=== PATIENT | female | born 1955 | race Caucasian/White ===

== ENCOUNTER 2017-01-16 09:10 | Day surgery (SDC) | payer BC ==
[~2017-01-16] VITALS: Ht 154.9 cm; Wt 81.5 kg
[2017-01-16 10:15] VITALS: Ht 154.9 cm; Wt 81.5 kg
[2017-01-16] MEDS ORDERED: OMEP40CA6 PO (10:22)
[2017-01-16] MEDS ORDERED: LEVO88TA3 PO (10:22)
[2017-01-16] MEDS ORDERED: ASPI81TA3 PO (10:22)
[2017-01-16] MEDS ORDERED: METF-480 PO (10:22)
[2017-01-16] MEDS ORDERED: PRAV10TA43 PO (10:22)
[2017-01-16] MEDS ORDERED: LISI2.5T59 PO (10:22)
[2017-01-16] MEDS ORDERED: MIDAZOLAM 1 MG/ML 2 ML INJ ONE (10:24)
[2017-01-16] MEDS ORDERED: PROPOFOL 20 ML ONE ×2 (10:24→11:30)
[2017-01-16] MEDS ORDERED: LIDOCAINE 2% (SDV) 5 ML INJ ONE (10:24)
[2017-01-16 11:02] VITALS: BP 130/70; PULSE 98; RESP 15
[2017-01-16 11:55] VITALS: BP 114/76; PULSE 80; RESP 20
--- NOTE | 2017-01-16 14:18 | GILP ---
DATE OF PROCEDURE: 01/16/2017 NAME OF PROCEDURES: 1. Esophagogastroduodenoscopy and biopsy. 2. Colonoscopy and biopsy. SURGEON: Hamida Ortega MD PREOPERATIVE DIAGNOSES: 1. Abdominal pain. 2. Positive occult blood in stool. POSTOPERATIVE DIAGNOSES: 1. Gastritis. 2. Gastric mucosal biopsies were taken for Helicobacter pylori test. 3. Colonoscopy all the way to the cecum. 4. Small transverse colon polyp was removed using the biopsy forceps. 5. Internal hemorrhoids. INDICATION FOR THE PROCEDURE: Ms. Candice Guerin is a 61-year-old female patient who had upper abdominal pain, not responding to therapy. She was also noted to have positive occult blood in stool. The p atient was scheduled for endoscopy and colonoscopy for further evaluation. The procedures and possible complications were well explained to the patient and the family, and con sent was obtained. DESCRIPTION OF PROCEDURE: Under the influence of anesthesia, the gastroscope was carefully introduc ed into the esophagus, and under direct vision, it was advanced to the stomach and through the pylor us into the duodenal bulb and descending duodenum. FINDINGS: ESOPHAGUS: The mucosa was normal. STOMACH: The patient had gastritis. Gastric mucosal biopsies were taken for H. pylori test. DUODENUM: Normal. The colonoscope was carefully introduced in the rectum, and under direct vision, it was advanced all the way to the cecum. FINDINGS: The patient had a small transverse colon polyp, and it was removed using the biopsy force ps. She had internal hemorrhoids. She tolerated the procedures very well, and there was no complication from the procedures. At the e nd of the procedures, she was awake with stable vital signs, and she was discharged home to the care of her family. IMPRESSION: 1. Gastritis with erosions. 2. Gastric mucosal biopsies were taken for Helicobacter pylori test. 3. Colonoscopy all the way to the cecum. 4. Small transverse colon polyp was removed using the biopsy forceps. 5. Internal hemorrhoids. PLAN: 1. Continue omeprazole. 2. Await histopathology reports. 3. Next screening colonoscopy in 10 years. Dictated By: HAMIDA MACIAS/YARA Conf#: [id number] DID#: [id number]
== END 2017-01-16 16:37 | disposition home or self-care (01) ==
LOC: GIL 09:10
PROVIDERS: ATTEND Internal Medicine Gastroenterology
DX: K92.1 Melena (principal); K29.70 Gastritis, unspecified, without bleeding; D12.3 Benign neoplasm of transverse colon; I10 Essential (primary) hypertension; E03.9 Hypothyroidism, unspecified; E11.9 Type 2 diabetes mellitus without complications; E78.5 Hyperlipidemia, unspecified
CPT/HCPCS: 43239; 45380; 82962; 87081; 88305; J2250; Z7610

== ENCOUNTER 2017-11-12 18:56 | Emergency (ER) | END 2017-11-12 23:00 | disposition home or self-care (01) ==

== ENCOUNTER 2018-12-07 19:17 | Emergency (ER) | payer BC ==
[~2018-12-07] VITALS: Ht 154.9 cm; Wt 81.4 kg
[~2018-12-07 19:17] MED LIST: ASPI-903 PO; COLC0.6T6 PO; IBUP-1542 PO; LEVO88TA3 PO; LISI2.5T59 PO; METF-480 PO; OMEP40CA6 PO; PRAV10TA43 PO; PRED20TA PO
[2018-12-07 19:22] VITALS: Ht 154.9 cm; Wt 81.4 kg
[2018-12-07] MEDS ORDERED: SOD CHLORIDE 0.9% 1,000 ML IV STA (22:17)
[2018-12-07] MEDS ORDERED: MECLIZINE 12.5 MG TAB PO ONE (22:30)
[2018-12-08] MEDS ORDERED: MECL12.574 PO (00:55)
--- NOTE | 2018-12-08 00:59 | ERD ---
ER Documentation Chief Complaint Chief Complaint HIGH BLOOD PRESSURE, DIZZINESS HPI Is a 63-year-old female which felt like the room was spinning. Today. Denies fevers chills nausea vomiting. She did complain of mild headache associated with it and some mild left ear pain.. Denies any focal neurologic complaints. Denies any other current issues. ROS All systems reviewed and are negative except as per history of present illness. Medications Home Meds Active Scripts Meclizine Hcl* (Antivert*) 12.5 Mg Tab, 12.5 MG PO Q6H PRN for DIZZINESS, #20 TAB Prov:SHERWIN CAZARES 12/08/18 Prednisone* (Prednisone*) 20 Mg Tab, 60 MG PO DAILY for 3 Days, TAB Prov:JACKLYN PONCE. MEDIA DIRECTOR 11/12/17 Colchicine* (Colcrys*) 0.6 Mg Tablet, 0.6 MG PO as directed, #3 TAB Take 2 tabs immediately, then 1 tab 1 hour later. Prov:JACKLYN PONCE. MEDIA DIRECTOR 11/12/17 Ibuprofen* (Motrin*) 600 Mg Tab, 600 MG PO Q6H PRN for PAIN AND OR ELEVATED TEMP, #30 TAB Prov:JACKLYN PONCE. MEDIA DIRECTOR 11/12/17 Reported Medications Aspirin* (Aspirin* Chew) 81 Mg Tab.chew, 81 MG PO DAILY, TAB.CHEW 01/16/17 Omeprazole* (Omeprazole*) 40 Mg Capsule.dr, 40 MG PO DAILY, #30 CAP 01/16/17 Levothyroxine Sodium* (Levothyroxine Sodium*) 88 Mcg Tablet, 88 MCG PO BEFORE BREAKFAST, #30 TAB 01/16/17 Pravastatin Sodium* (Pravastatin Sodium*) 10 Mg Tablet, 10 MG PO HS, TAB 01/16/17 Metformin* (Glucophage*) 850 Mg Tablet, 850 MG PO WITH BREAKFAST, #30 TAB 01/16/17 Lisinopril* (Lisinopril*) 2.5 Mg Tablet, 2.5 MG PO DAILY, #30 TAB 01/16/17 Allergies Allergies: Coded Allergies: No Known Allergy (Unverified , 05/17/14) PMhx/Soc History of Surgery: Yes ( X 1) Anesthesia Reaction: No Hx Neurological Disorder: No Hx Respiratory Disorders: No Hx Cardiac Disorders: Yes (HTN, HLD) Hx Psychiatric Problems: No Hx Miscellaneous Medical Probl: Yes (DM) Hx Alcohol Use: No Hx Substance Use: No Hx Tobacco Use: No Smoking Status: Never smoker Physical Exam Vitals Vital Signs Date Temp Pulse Resp B/P (MAP) Pulse Ox O2 O2 Flow FiO2 Time Delivery Rate 12/07/18 97.9 100 18 132/73 98 Room Air 22:30 (92) 12/07/18 98.3 105 17 153/76 97 19:22 (101) Physical Exam Const: No acute distress Head: Atraumatic Eyes: Normal Conjunctiva ENT: Normal External Ears, Nose and Mouth. Neck: Full range of motion. No meningismus. Resp: Clear to auscultation bilaterally Cardio: Regular rate and rhythm, no murmurs Abd: Soft, non tender, non distended. Normal bowel sounds Skin: No petechiae or rashes Back: No midline or flank tenderness Ext: No cyanosis, or edema Neur: Awake and alert Psych: Normal Mood and Affect Result Diagram: 12/07/18230712/07/182307 Results 24 hrs Laboratory Tests Test 12/07/18 23:08 White Blood Count 11.1 10^3/ul Red Blood Count 4.81 10^6/ul Hemoglobin 12.8 g/dl Hematocrit 37.8 % Mean Corpuscular Volume 78.6 fl Mean Corpuscular Hemoglobin 26.6 pg Mean Corpuscular Hemoglobin Concent 33.9 g/dl Red Cell Distribution Width 12.3 % Platelet Count 298 10^3/UL Mean Platelet Volume 9.2 fl Immature Granulocytes % 0.500 % Neutrophils % 62.4 % Lymphocytes % 30.0 % Monocytes % 6.7 % Eosinophils % 0.0 % Basophils % 0.4 % Nucleated Red Blood Cells % 0.0 /100WBC Immature Granulocytes # 0.060 10^3/ul Neutrophils # 6.9 10^3/ul Lymphocytes # 3.3 10^3/ul Monocytes # 0.7 10^3/ul Eosinophils # 0.0 10^3/ul Basophils # 0.0 10^3/ul Nucleated Red Blood Cells # 0.0 10^3/ul Prothrombin Time 12.7 Sec Prothrombin Time Ratio 1.0 INR International Normalized Ratio 0.94 Activated Partial Thromboplast Time 28.6 Sec Sodium Level 141 mmol/L Potassium Level 4.3 mmol/L Chloride Level 106 mmol/L Carbon Dioxide Level 24 mmol/L Anion Gap 11 Blood Urea Nitrogen 14 mg/dl Creatinine 0.71 mg/dl Est Glomerular Filtrat Rate mL/min > 60 mL/min Glucose Level 202 mg/dl Calcium Level 10.5 mg/dl Troponin I < 0.012 ng/ml Current Medications Medications Dose Sig/Saniya Start Time Status Last (Trade) Ordered Route PRN Stop Time Admin Dose Reason Admin Sodium 1,000 ml @ Q1H STAT 12/07/18 DC 12/07/18 Chloride 1,000 mls/hr IV 22:17 23:53 12/07/18 23:16 Meclizine 25 mg ONCE ONCE 12/07/18 DC 12/07/18 HCl PO 22:30 23:49 (Antivert) 12/07/18 22:31 Procedures/MDM EKG: Rate/Rhythm: [Normal Sinus Rhythm] QRS, ST, T-waves: [No changes consistent w/ acute ischemia] Impression: [No evidence of ischemia or arrhythmia] Chest X-ray 1V Interpreted by me: Soft Tissue: No acute abnorm alities Bones: No acute abnormalities Mediastinum/Cardiac Silhouette/Lungs: [No acute abnormalities] Medical decision making: Patient's neurologic symptoms have stabilized while they have been evaluated in the department and are appropriate for outpatient work up. No e/o meningitis, intracranial bleed, seizure, stroke. Departure Diagnosis: Primary Impression: Dizziness Condition: Stable Patient Instructions: Dizziness, Unk Cause SHERWIN CAZARES Dec 08, 2018 00:59
[2018-12-08 02:00] VITALS: BP 128/69; PULSE 78; RESP 18
== END 2018-12-08 02:10 | disposition home or self-care (01) ==
LOC: E/R 19:17
DX: R42 Dizziness and giddiness (principal); I10 Essential (primary) hypertension; E11.9 Type 2 diabetes mellitus without complications; Z79.82 Long term (current) use of aspirin; Z79.84 Long term (current) use of oral hypoglycemic drugs
CPT/HCPCS: 36415; 70450; 71045; 80048; 84484; 85025; 85610; 85730; 93005; 99285; J7030; Z7610

== ENCOUNTER 2019-07-02 02:04 | Emergency (ER) | payer BC ==
[~2019-07-02] VITALS: Ht 152.4 cm; Wt 80.3 kg
[~2019-07-02 02:04] MED LIST changes: +ASPI-817 PO; +GUAI-497 PO; +MECL12.574 PO; +METF100010 PO; +MTF1000T PO; +OMEP40CA38 PO; -OMEP40CA6 PO
[2019-07-02 02:07] VITALS: Ht 152.4 cm; Wt 80.3 kg
[2019-07-02] MEDS ORDERED: SOD CHLORIDE 0.9% 1,000 ML IV ONE (04:30)
[2019-07-02] MEDS ORDERED: KETOROLAC 15 MG INJ IV ONE (05:16)
[2019-07-02 06:15] VITALS: BP 107/65; PULSE 71; RESP 17
== END 2019-07-02 06:15 | disposition home or self-care (01) ==
LOC: E/R 02:04
DX: R07.9 Chest pain, unspecified (principal); E11.9 Type 2 diabetes mellitus without complications; I10 Essential (primary) hypertension; R09.81 Nasal congestion; R05 Cough; R00.2 Palpitations; Z79.82 Long term (current) use of aspirin; Z79.84 Long term (current) use of oral hypoglycemic drugs
CPT/HCPCS: 36415; 71045; 80048; 83735; 84439; 84443; 84484; 85025; 93005; 96361; 96374; 99285; J1885; J7030; Z7610